=== PATIENT | female | born 1975 | race American Indian/Alaskan Native ===

== ENCOUNTER 2020-11-23 02:36 | Emergency (ER) | payer OTHER ==
[2020-11-23] MEDS ORDERED: Sodium Chloride 0.9% 10 ML Syringe FLUSH PRN (02:48)
[2020-11-23] MEDS ORDERED: Sodium Chloride 0.9% 1,000 ML IV ONE (02:48)
--- NOTE | 2020-11-23 02:55 | EDM.PDOC ---
ED HPI GENERAL MEDICAL PROBLEM - General Chief Complaint: Diabetic Complaint Stated Complaint: MEDICAL LAW ENFORCEMENT Time Seen by Provider: 11/23/20 02:43 Source of Information: Reports: Patient, Police History Limitations: Reports: No Limitations - History of Present Illness INITIAL COMMENTS - FREE TEXT/NARRATIVE: Astrid is a 45-year-old female brought in by law enforcement from the senior living for evaluation of hyperglycemia. The patient reportedly has been in custody since 0100 hrs. after which she was apprehended for DUI with PBT alcohol level of 0.127. She apparently vomited on the scene. Tonight in senior living she asked that they they check a blood sugar on her and found her to be greater than 400 prompting them bring her in for evaluation. The patient reports that she has not taken any of her Metformin or Lantus since Tuesday morning. She has had increased thirst. She does report that she had several shots of alcohol today and then went to [employer] and had soda. She reports her blood sugars are normally 180 to 200 mg/dL. She states that she has refills of her medication but she forgot to pick them up on Tuesday. denies Pain Score (Numeric/FACES): 0 - Related Data Allergies Allergy/AdvReac Type Severity Reaction Status Date / Time Penicillins Allergy Cannot Verified 11/23/20 02:51 Remember Home Meds: Home Meds Cholecalciferol (Vitamin D3) [Vitamin D] 50,000 unit PO WEEKLY 11/23/20 [History] Insulin Glarg,Human.Rec.Analog [Lantus Solostar] 20 units SQ BID 11/23/20 [History] Multivitamin 1 each PO DAILY 11/23/20 [History] metFORMIN HCl [Metformin ER Gastric] 1,000 mg PO BEDTIME 11/23/20 [History] ED ROS GENERAL - Review of Systems Review Of Systems: See Below Constitutional: Reports: No Symptoms HEENT: Reports: No Symptoms Respiratory: Reports: Cough (For the last couple of days she has had a dry, hacking cough.) Cardiovascular: Reports: No Symptoms Endocrine: Reports: High Glucose, Polydypsia, Polyuria GI/Abdominal: Reports: Nausea, Vomiting : Reports: No Symptoms Musculoskeletal: Reports: No Symptoms Skin: Reports: No Symptoms Neurological: Reports: No Symptoms Psychiatric: Reports: No Symptoms Hematologic/Lymphatic: Reports: No Symptoms Immunologic: Reports: No Symptoms ED EXAM GENERAL NO PERIP PULSE - Physical Exam Exam: See Below Exam Limited By: No Limitations General Appearance: Alert, WD/WN, No Apparent Distress Eye Exam: Bilateral Eye: EOMI, PERRL Throat/Mouth: Normal Lips, Normal Voice, No Airway Compromise, Other (Dry mucous membranes) Head: Atraumatic, Normocephalic (For) Neck: Normal Inspection, Supple, Non-Tender, Full Range of Motion Respiratory/Chest: No Respiratory Distress, Lungs Clear, Normal Breath Sounds, No Accessory Muscle Use, Chest Non-Tender Cardiovascular: Normal Peripheral Pulses, Regular Rate, Rhythm, No Edema, No Gallop, No JVD, No Murmur, No Rub GI/Abdominal: Normal Bowel Sounds, Soft, Non-Tender, No Organomegaly, No Distention, No Abnormal Bruit, No Mass (Female) Exam: Deferred Rectal (Female) Exam: Deferred Extremities: Normal Inspection, Normal Range of Motion, Non-Tender, Normal Capillary Refill, No Pedal Edema Neurological: Alert, Oriented, Normal Cognition, No Motor/Sensory Deficits Psychiatric: Normal Affect, Normal Mood Skin Exam: Warm, Dry, Intact, Normal Color, No Rash Lymphatic: No Adenopathy Course - Vital Signs Last Recorded V/S: Last Vital Signs Temp 35.9 C L 11/23/20 02:49 Pulse 104 H 11/23/20 02:49 Resp 16 11/23/20 02:49 BP 134/81 11/23/20 02:49 Pulse Ox 99 11/23/20 02:49 - Orders/Labs/Meds Orders: Active Orders 24 hr Category Date Time Status GLUCOSE POC LAB TO COLLECT JPM [POC] Stat Lab 11/23/20 05:30 Ordered GLYCOSYLATED HEMOGLOBIN,HGBA1C [CHEM] Stat Lab 11/23/20 03:00 Received Dextrose 50% in Water Med 11/23/20 03:30 Active 50 ml IVPUSH ASDIRECTED PRN Glucagon,Human Recombinant [GlucaGen] Med 11/23/20 03:30 Active 1 mg IM ASDIRECTED PRN Insulin Glarg,Human.Rec.Analog [LantUS Solostar] Med 11/23/20 03:45 Active 20 units SUBCUT DAILY Sodium Chloride 0.9% [Saline Flush] Med 11/23/20 02:48 Active 10 ml FLUSH ASDIRECTED PRN Saline Lock Insert [OM.PC] Routine Oth 11/23/20 02:48 Ordered Medication Orders Dextrose/Water (Dextrose 50% In Water) 50 ml IVPUSH ASDIRECTED PRN PRN Reason: Hypoglycemia Glucagon (Glucagen) 1 mg IM ASDIRECTED PRN PRN Reason: Hypoglycemia Insulin Glargine (Lantus Solostar) 20 units SUBCUT DAILY CARLITO Last Admin: 11/23/20 03:53 Dose: 20 unit Documented by: MARU Cosigned by: VARGHESE Sodium Chloride (Saline Flush) 10 ml FLUSH ASDIRECTED PRN PRN Reason: Keep Vein Open Labs: Laboratory Tests 11/23/20 11/23/20 11/23/20 Range/Units 03:00 03:00 03:00 WBC 9.8 (4.5-11.0) K/uL RBC 5.57 H (3.30-5.50) M/uL Hgb 15.0 (12.0-15.0) g/dL Hct 45.0 (36.0-48.0) % MCV 81 (80-98) fL MCH 27 (27-31) pg MCHC 33 (32-36) % Plt Count 314 (150-400) K/uL Neut % (Auto) 54 (36-66) % Lymph % (Auto) 40 (24-44) % [place] % (Auto) 4 (2-6) % Eos % (Auto) 2 (2-4) % Baso % (Auto) 1 (0-1) % ABG Hemoglobin 15.4 (12.0-16.0) g/dL ABG Oxyhemoglobin 72.6 % ABG Carboxyhemoglobin 4.5 H (0.0-1.6) % ABG Methemoglobin 1.1 % VBG pH 7.313 L (7.350-7.450) VBG pCO2 35.7 mm/Hg VBG pO2 44.2 mm/Hg VBG HCO3 17.6 mmol/L VBG Total CO2 15.7 mmol/L VBG O2 Saturation 76.9 VBG O2 Content 15.7 %vol VBG Base Excess -7.4 mm/L O2 Delivery Device Room air Sodium 136 L (140-148) mmol/L Potassium 3.3 L (3.6-5.2) mmol/L Chloride 101 (100-108) mmol/L Carbon Dioxide 19 L (21-32) mmol/L Anion Gap 19.3 H (5.0-14.0) mmol/L BUN 11 (7-18) mg/dL Creatinine 1.0 (0.6-1.0) mg/dL Est Cr Clr Drug Dosing TNP Estimated GFR (MDRD) 60 (>60) Glucose 642 H* (74-106) mg/dL Calcium 8.4 L (8.5-10.1) mg/dL Total Bilirubin 0.2 (0.2-1.0) mg/dL AST 25 (15-37) U/L ALT 58 (12-78) U/L Alkaline Phosphatase 207 H (46-116) U/L Total Protein 8.2 (6.4-8.2) g/dL Albumin 3.3 L (3.4-5.0) g/dL Globulin 4.9 H (2.3-3.5) g/dL Albumin/Globulin Ratio 0.7 L (1.2-2.2) Urine Color (YELLOW) Urine Appearance (CLEAR) Urine pH (5.0-8.0) Ur Specific [place] (1.008-1.030) Urine Protein (NEGATIVE) mg/dL Urine Glucose (UA) (NEGATIVE) mg/dL Urine Ketones (NEGATIVE) mg/dL Urine Occult Blood (NEGATIVE) Urine Nitrite (NEGATIVE) Urine Bilirubin (NEGATIVE) Urine Urobilinogen (0.2-1.0) EU/dL Ur Leukocyte Esterase (NEGATIVE) Urine RBC (0-5) Urine WBC (0-5) Ur Epithelial Cells Amorphous Sediment Urine Bacteria Urine Mucus Ketones (NEGATIVE) 11/23/20 11/23/20 Range/Units 03:00 03:39 WBC (4.5-11.0) K/uL RBC (3.30-5.50) M/uL Hgb (12.0-15.0) g/dL Hct (36.0-48.0) % MCV (80-98) fL MCH (27-31) pg MCHC (32-36) % Plt Count (150-400) K/uL Neut % (Auto) (36-66) % Lymph % (Auto) (24-44) % [place] % (Auto) (2-6) % Eos % (Auto) (2-4) % Baso % (Auto) (0-1) % ABG Hemoglobin (12.0-16.0) g/dL ABG Oxyhemoglobin % ABG Carboxyhemoglobin (0.0-1.6) % ABG Methemoglobin % VBG pH (7.350-7.450) VBG pCO2 mm/Hg VBG pO2 mm/Hg VBG HCO3 mmol/L VBG Total CO2 mmol/L VBG O2 Saturation VBG O2 Content %vol VBG Base Excess mm/L O2 Delivery Device Sodium (140-148) mmol/L Potassium (3.6-5.2) mmol/L Chloride (100-108) mmol/L Carbon Dioxide (21-32) mmol/L Anion Gap (5.0-14.0) mmol/L BUN (7-18) mg/dL Creatinine (0.6-1.0) mg/dL Est Cr Clr Drug Dosing Estimated GFR (MDRD) (>60) Glucose (74-106) mg/dL Calcium (8.5-10.1) mg/dL Total Bilirubin (0.2-1.0) mg/dL AST (15-37) U/L ALT (12-78) U/L Alkaline Phosphatase (46-116) U/L Total Protein (6.4-8.2) g/dL Albumin (3.4-5.0) g/dL Globulin (2.3-3.5) g/dL Albumin/Globulin Ratio (1.2-2.2) Urine Color Yellow (YELLOW) Urine Appearance Clear (CLEAR) Urine pH 6.5 (5.0-8.0) Ur Specific [place] 1.015 (1.008-1.030) Urine Protein Negative (NEGATIVE) mg/dL Urine Glucose (UA) 500 H (NEGATIVE) mg/dL Urine Ketones Negative (NEGATIVE) mg/dL Urine Occult Blood Negative (NEGATIVE) Urine Nitrite Negative (NEGATIVE) Urine Bilirubin Negative (NEGATIVE) Urine Urobilinogen 0.2 (0.2-1.0) EU/dL Ur Leukocyte Esterase Negative (NEGATIVE) Urine RBC 0-5 (0-5) Urine WBC 0-5 (0-5) Ur Epithelial Cells Rare Amorphous Sediment Not seen Urine Bacteria Few Urine Mucus Not seen Ketones Negative (NEGATIVE) Meds: Medications Generic Name Dose Route Start Last Admin Trade Name Freq PRN Reason Stop Dose Admin Dextrose/Water 50 ml 11/23/20 03:30 Dextrose 50% In Water IVPUSH ASDIRECTED PRN Hypoglycemia Glucagon 1 mg 11/23/20 03:30 Glucagen IM ASDIRECTED PRN Hypoglycemia Insulin Glargine 20 units 11/23/20 03:45 11/23/20 03:53 Lantus Solostar SUBCUT 20 unit DAILY CARLITO Administration Sodium Chloride 10 ml 11/23/20 02:48 Saline Flush FLUSH ASDIRECTED PRN Keep Vein Open Discontinued Medications Generic Name Dose Route Start Last Admin Trade Name Any PRN Reason Stop Dose Admin Sodium Chloride 1,000 mls @ 999 mls/hr 11/23/20 02:48 11/23/20 03:40 Normal Saline IV 11/23/20 03:48 999 mls/hr .BOLUS ONE Administration Insulin Human Regular 10 unit 11/23/20 03:33 11/23/20 03:52 Humulin R SUBCUT 11/23/20 03:34 10 unit ONETIME ONE Administration Metformin HCl 1,000 mg 11/23/20 03:30 11/23/20 03:51 Glucophage PO 11/23/20 03:31 1,000 mg ONETIME ONE Administration Potassium Chloride 40 meq 11/23/20 03:36 11/23/20 03:50 Klor-Con M20 PO 11/23/20 03:37 40 meq ONETIME ONE Administration - Re-Assessments/Exams Free Text/Narrative Re-Assessment/Exam: 11/23/20 03:42 labs were reviewed showing a markedly elevated blood glucose at 642 mg/dL. Her venous blood gas is normal with a pH of 7.31. Her carboxyhemoglobin is elevated at 4.5 consistent with a smoker. She has mildly hypokalemic with a potassium of 3.3. This was repleted with K. Dur 40 mEq by mouth. Her CBC is unremarkable. Urinalysis shows 11/23/20 05:33 repeat bedside [id number] blood glucose is down to 366 mg/dL. This is a significant improvement after the patient received 10 units of regular insulin and 20 units of Lantus. At this time I believe she is suitable for discharge home but needs to cigar packer and picker her insulin and Metformin and restart them as soon as possible. Indications return to the ED were discussed. Departure - Departure Time of Disposition: 05:34 Disposition: Home, Self-Care 01 Condition: Good Clinical Impression: Hyperglycemia without ketosis, Hypokalemia with normal pH Diabetes type 2, uncontrolled Qualifiers: Glycemic state: with hyperglycemia Qualified Code(s): E11.65 - Type 2 diabetes mellitus with hyperglycemia - Discharge Information *PRESCRIPTION DRUG MONITORING PROGRAM REVIEWED*: Not Applicable *COPY OF PRESCRIPTION DRUG MONITORING REPORT IN PATIENT TRACEY: Not Applicable Instructions: Hyperglycemic Hyperosmolar State, Type 2 Diabetes Mellitus, Diagnosis, Adult, Hyperglycemia, [id number] Referrals: PCP,None [Primary Care Provider] - Forms: ED Department Discharge Care Plan Goals: Please refill your prescriptions today and reinitiate the Metformin and Lantus. Your body does not produce enough of its own insulin to be able to sustain you with type 2 diabetes. In addition, alcohol and soda will rapidly raise your blood sugar causing a shift of fluid and electrolytes out of your cells and could rapidly accelerate kidney failure, brain injury, heart disease, nerve damage and eye damage. In order to avoid this, you need to pay close attention to your blood glucose and limit the wide swings. Your blood glucose tonight was 642 mg/dL. We have replaced the potassium that your body needs with oral potassium. I recommend that you follow-up with your primary provider at the [facility] this week for recheck of your blood test. At this time, there is no indication that she require hospitalization. Sepsis Event Note (ED) - Focused Exam Vital Signs: Vital Signs Temp Pulse Resp BP Pulse Ox 11/23/20 02:49 35.9 C L 104 H 16 134/81 99 - Problem List & Annotations (1) Diabetes type 2, uncontrolled SNOMED Code(s): 501100228, 289670734 Code(s): E11.65 - TYPE 2 DIABETES MELLITUS WITH HYPERGLYCEMIA Status: Acute Priority: High Current Visit: Yes Qualifiers: Glycemic state: with hyperglycemia Qualified Code(s): E11.65 - Type 2 diabetes mellitus with hyperglycemia (2) Hyperglycemia without ketosis SNOMED Code(s): 33115573 Code(s): R73.9 - HYPERGLYCEMIA, UNSPECIFIED Status: Acute Priority: High Current Visit: Yes (3) Hypokalemia with normal pH SNOMED Code(s): 144806749 Code(s): E87.6 - HYPOKALEMIA Status: Acute Priority: High Current Visit: Yes - Problem List Review Problem List Initiated/Reviewed/Updated: Yes - My Orders Last 24 Hours: My Active Orders 11/23/20 02:48 Sodium Chloride 0.9% [Saline Flush] 10 ml FLUSH ASDIRECTED PRN Saline Lock Insert [OM.PC] Routine 11/23/20 03:00 GLYCOSYLATED HEMOGLOBIN,HGBA1C [CHEM] Stat 11/23/20 03:30 Dextrose 50% in Water 50 ml IVPUSH ASDIRECTED PRN Glucagon,Human Recombinant [GlucaGen] 1 mg IM ASDIRECTED PRN 11/23/20 03:45 Insulin Glarg,Human.Rec.Analog [LantUS Solostar] 20 units SUBCUT DAILY 11/23/20 05:30 GLUCOSE POC LAB TO COLLECT JPM [POC] Stat - Assessment/Plan Last 24 Hours: My Active Orders 11/23/20 02:48 Sodium Chloride 0.9% [Saline Flush] 10 ml FLUSH ASDIRECTED PRN Saline Lock Insert [OM.PC] Routine 11/23/20 03:00 GLYCOSYLATED HEMOGLOBIN,HGBA1C [CHEM] Stat 11/23/20 03:30 Dextrose 50% in Water 50 ml IVPUSH ASDIRECTED PRN Glucagon,Human Recombinant [GlucaGen] 1 mg IM ASDIRECTED PRN 11/23/20 03:45 Insulin Glarg,Human.Rec.Analog [LantUS Solostar] 20 units SUBCUT DAILY 11/23/20 05:30 GLUCOSE POC LAB TO COLLECT JPM [POC] Stat
[2020-11-23] MEDS ORDERED: metFORMIN 500 MG Tab PO ONE (03:30)
[2020-11-23] MEDS ORDERED: 50% Dextrose in Water 50 ML Syringe IVPUSH PRN (03:30)
[2020-11-23] MEDS ORDERED: Glucagon,Human Recombinant 1 MG Vial IM PRN (03:30)
[2020-11-23] MEDS ORDERED: Insulin Regular, Human 100 Units/ML 3 ML Vial SUBCUT ONE (03:33)
[2020-11-23] MEDS ORDERED: Potassium Chloride 20 MEQ Tab.ER PO ONE (03:36)
[2020-11-23] MEDS ORDERED: Insulin Glargine,Human Rec. Analog 100 Units/ML 3 ML Pen SUBCUT SCH (03:45)
== END 2020-11-23 06:11 | disposition home or self-care (01) ==
LOC: JP.ED 02:36
DX: E11.65 Type 2 diabetes mellitus with hyperglycemia (principal); E87.6 Hypokalemia; Z88.0 Allergy status to penicillin; Z79.4 Long term (current) use of insulin
CPT/HCPCS: 36415; 80053; 81001; 82009; 82803; 82962; 85025; 99285; A9270; J1815; J7030; 99284